=== PATIENT | male | born 1970 | race Caucasian/White ===

== ENCOUNTER 2020-11-07 12:28 | Emergency (ER) | payer MEDICARE ==
[~2020-11-07 12:28] MED LIST: Iopamidol 370 76% 100 ML VIAL ONE
[2020-11-07] MEDS ORDERED: Aspirin Chewable 81 MG TAB ONE ×2 (12:52→12:53)
[2020-11-07 12:53] LABS: Hemoglobin 13.6 g/dL (14.0-18.0); Mean Corpuscular HGB CONC 30.8 g/dL (32.0-36.0); Mean Corpuscular Hemoglobin 30.4 pg (27.0-31.0); Mean Corpuscular Volume 98.5 fL (78.0-98.0); Mean Platelet Volume 7.7 fL (7.4-10.4); Platelet Count 90 thou/uL (130-400); RBC Distribution Width 13.6 % (11.5-14.5); Red Blood Cell (RBC) Count 4.47 mill/uL (4.70-6.10); White Blood Cell (WBC) Count 7.6 thou/uL (4.8-10.8)
[2020-11-07 13:05] LABS: Band 1 % (5-11); Eosinophils 2 % (0-10); Lymphocytes 16 % (21-51); MDiff Complete? YES; Monocytes 5 % (0-10); Neutrophil 76 % (42-75); Platelet Morphology Comment Appears Decreased; RBC Morphology Normal
[2020-11-07 13:09] LABS: ALT (SGPT) 38 U/L (8-55); AST (SGOT) 22 U/L (5-34); Albumin 3.5 g/dL (3.5-5.0); Alkaline Phosphatase 37 U/L (40-110); Anion Gap 13 mmol/L (10-20); BUN (Urea Nitrogen) 9 mg/dL (8.4-25.7); Bilirubin, Total 0.7 mg/dL (0.2-1.2); CK (CPK) 39 U/L (30-200); Calc. Creatinine Clearance 0 mL/min (70-130); Calcium 9.5 mg/dL (7.8-10.44); Carbon Dioxide 27 mmol/L (22-29); Chloride 103 mmol/L (98-107); Globulin 3.2 g/dL (2.4-3.5); Glucose 142 mg/dL (70-105); Magnesium 1.2 mg/dL (1.6-2.6); Potassium 4.1 mmol/L (3.5-5.1); Protein, Total 6.7 g/dL (6.0-8.3); Sodium 139 mmol/L (136-145)
[2020-11-07] MEDS ORDERED: Sodium Chloride 0.9% 0 ML ONE (13:38)
[2020-11-07] MEDS ORDERED: Diltiazem 125 MG/25 ML ONE (13:38)
[2020-11-07] MEDS ORDERED: HYDROcodone/Acetaminophen 10/325 mg Tablet ONE (16:09)
== END 2020-11-07 19:22 | disposition short-term general hospital (02) ==
LOC: NAV ERS 12:28
DX: R07.9 Chest pain, unspecified (principal); I48.91 Unspecified atrial fibrillation; E78.2 Mixed hyperlipidemia; E66.9 Obesity, unspecified; Z86.711 Personal history of pulmonary embolism; Z86.19 Personal history of other infectious and parasitic diseases; Z79.899 Other long term (current) drug therapy
CPT/HCPCS: 36415; 71045; 71275; 80053; 82550; 83735; 83880; 84484; 85025; 93005; 96365; 96366; 96376; Q9967

== ENCOUNTER 2020-12-07 11:14 | Emergency (ER) | payer MEDICARE ==
[2020-12-07] MEDS ORDERED: Ventolin HFA Inhaler 60 PUFF INHALER ONE (12:19)
[2020-12-07 13:16] LABS: #Eosinphils 0.2 thou/uL (0.0-0.7); #Lymphocytes 1.2 thou/uL (1.20-3.40); #Monocytes 0.6 thou/uL (0.11-0.59); #Neutrophils 2.3 thou/uL (1.40-6.50); %Basophils 1.1 % (0.0-1.0); %Eosinophils 5.4 % (0.0-10.0); %Lymphocytes 26.6 % (21.0-51.0); %Monocytes 13.7 % (0.0-10.0); %Neutrophils 53.2 % (42.0-75.0); Hemoglobin 14.2 g/dL (14.0-18.0); Mean Corpuscular HGB CONC 30.3 g/dL (32.0-36.0); Mean Platelet Volume 9.2 fL (7.4-10.4); Platelet Count 71 thou/uL (130-400); RBC Distribution Width 14.6 % (11.5-14.5); Red Blood Cell (RBC) Count 4.74 mill/uL (4.70-6.10); White Blood Cell (WBC) Count 4.3 thou/uL (4.8-10.8)
[2020-12-07 13:30] LABS: ALT (SGPT) 54 U/L (8-55); AST (SGOT) 41 U/L (5-34); Albumin 3.7 g/dL (3.5-5.0); Alkaline Phosphatase 36 U/L (40-110); Anion Gap 13 mmol/L (10-20); BUN (Urea Nitrogen) 13 mg/dL (8.4-25.7); Bilirubin, Total 0.6 mg/dL (0.2-1.2); Calc. Creatinine Clearance 0 mL/min (70-130); Calcium 9.3 mg/dL (7.8-10.44); Carbon Dioxide 25 mmol/L (22-29); Chloride 105 mmol/L (98-107); Globulin 3.9 g/dL (2.4-3.5); Glucose 108 mg/dL (70-105); Potassium 4.9 mmol/L (3.5-5.1); Protein, Total 7.6 g/dL (6.0-8.3); Sodium 138 mmol/L (136-145)
[2020-12-07 14:15] LABS: SARS-CoV-2 NAA Rapid Test DETECTED (NotDetected)
[2020-12-07] MEDS ORDERED: Dexamethasone 4 mg/ml Vial ONE (14:16)
== END 2020-12-07 14:58 | disposition home or self-care (01) ==
LOC: NAV ERS 11:14
DX: U07.1 COVID-19 (principal); E78.5 Hyperlipidemia, unspecified; I10 Essential (primary) hypertension; I48.91 Unspecified atrial fibrillation; Z79.899 Other long term (current) drug therapy
CPT/HCPCS: 0240U; 71045; 80053; 83605; 83880; 84484; 85025; 93005; 94760; J1100

== ENCOUNTER 2020-12-16 16:29 | Emergency (ER) | payer MEDICARE ==
[2020-12-16 17:59] LABS: INR-International Normal Ratio 1.2
[2020-12-16 18:02] LABS: ALT (SGPT) 54 U/L (8-55); AST (SGOT) 77 U/L (5-34); Albumin 3.6 g/dL (3.5-5.0); Alkaline Phosphatase 40 U/L (40-110); Anion Gap 13 mmol/L (10-20); BUN (Urea Nitrogen) 42 mg/dL (8.4-25.7); Calc. Creatinine Clearance 0 mL/min (70-130); Calcium 11.4 mg/dL (7.8-10.44); Carbon Dioxide 25 mmol/L (22-29); Chloride 98 mmol/L (98-107); Globulin 3.7 g/dL (2.4-3.5); Glucose 141 mg/dL (70-105); Potassium 4.7 mmol/L (3.5-5.1); Protein, Total 7.3 g/dL (6.0-8.3); Sodium 131 mmol/L (136-145)
[2020-12-16 18:28] LABS: #Basophils 0.1 thou/uL (0.0-0.2); #Eosinphils 0.1 thou/uL (0.0-0.7); #Lymphocytes 1.4 thou/uL (1.20-3.40); #Neutrophils 4.3 thou/uL (1.40-6.50); %Basophils 1.3 % (0.0-1.0); %Eosinophils 1.3 % (0.0-10.0); %Lymphocytes 20.5 % (21.0-51.0); %Neutrophils 62.8 % (42.0-75.0); Hemoglobin 13.9 g/dL (14.0-18.0); Mean Corpuscular HGB CONC 31.2 g/dL (32.0-36.0); Mean Corpuscular Hemoglobin 30.4 pg (27.0-31.0); Mean Corpuscular Volume 97.3 fL (78.0-98.0); Mean Platelet Volume 7.5 fL (7.4-10.4); Platelet Count 90 thou/uL (130-400); RBC Distribution Width 13.8 % (11.5-14.5); Red Blood Cell (RBC) Count 4.57 mill/uL (4.70-6.10); White Blood Cell (WBC) Count 6.8 thou/uL (4.8-10.8)
[2020-12-16 18:53] LABS: PTT 20.5 sec (22.9-36.1)
[2020-12-16 19:29] LABS: CKMB 16.5 ng/mL (0-6.6)
[2020-12-16] MEDS ORDERED: methylPREDNISolone Sod Succ/PF 125 MG/2 ML VIAL ONE (21:31)
== END 2020-12-16 22:47 | disposition home or self-care (01) ==
LOC: NAV ERS 16:29
DX: U07.1 COVID-19 (principal); R77.8 Other specified abnormalities of plasma proteins; N28.9 Disorder of kidney and ureter, unspecified; R00.0 Tachycardia, unspecified; R11.10 Vomiting, unspecified; E78.2 Mixed hyperlipidemia; I10 Essential (primary) hypertension; I48.91 Unspecified atrial fibrillation; Z86.711 Personal history of pulmonary embolism; Z79.899 Other long term (current) drug therapy; Z79.01 Long term (current) use of anticoagulants
CPT/HCPCS: 71045; 80053; 82553; 83605; 83880; 84484; 85025; 85610; 85730; 93005; 96372; J2930